=== PATIENT | female | born 1940 | race Hispanic/Latino ===

== ENCOUNTER 2025-01-15 14:36 | Emergency (ER) | payer MEDICARE ==
[~2025-01-15] VITALS: Ht 167.6 cm; Wt 63.0 kg
[2025-01-15 15:12] VITALS: TEMP 98.3
[2025-01-15] MEDS ORDERED: SODIUM CHLORIDE FLUSH 10 ML SYR INJ PRN (15:30)
[2025-01-15] MEDS ORDERED: CARBIDOPA-LEVO1 EACH PO (16:29)
[2025-01-15] MEDS ORDERED: LIPITOR20 MG PO (16:30)
[2025-01-15] MEDS ORDERED: LISINOPRIL2.5 MG PO (16:30)
[2025-01-15 17:48] VITALS: PULSE 68; RESP 16; O2SAT 100
== END 2025-01-15 17:57 | disposition home or self-care (01) ==
LOC: FSED 14:50
DX: R06.02 Shortness of breath (principal); K59.00 Constipation, unspecified; R53.81 Other malaise; I10 Essential (primary) hypertension; G20.A1 Parkinson's disease without dyskinesia, without mention of fluctuations
CPT/HCPCS: 71045; 74176; 80053; 81003; 83880; 84484; 85025; 87086; 93005; 99284; J0696